=== PATIENT | male | born 1975 | race Caucasian/White ===

== ENCOUNTER 2024-07-05 10:23 | Day surgery (SDC) | payer OTHER ==
[2024-07-02 16:26] LABS: Anion Gap 5.6 mEq/L (5.0-15.0); Potassium 3.6 mEq/L (3.5-5.1)
--- NOTE | 2024-07-03 12:41 | EKG ---
Test Date: 2024-07-02 Test Time: 15:59:46 [employer]: JAKUB MEASUREMENT RESULTS: Intervals: Rate: 63 ID: [id number] QRSD: 102 QT: 376 QTc: 384 [place]: P: 72 ID: [id number] QRS: 82 T: 47 INTERPRETIVE STATEMENTS: Normal sinus rhythm with sinus arrhythmia Normal ECG No previous ECG available for comparison Electronically Signed On 07-03-24 12:38:31 CDT by Lazaro Vigil
[2024-07-05] MEDS: Ringers Lactate 1,000 ML IV ONE (10:45)
[2024-07-05] MEDS: CEFAZOLIN SODIUM 2 GM/VIAL ONE (11:50)
[2024-07-05] MEDS: LIDOCAINE HCL/EPINEPHRINE 20 ML MDV ONE (11:50)
[2024-07-05] MEDS ORDERED: MIDAZOLAM HCL 2 MG/2 ML INJ ONE (11:51)
[2024-07-05] MEDS ORDERED: dexAMETHasone 10 MG/ML VIAL ONE (11:51)
[2024-07-05] MEDS ORDERED: FENTANYL CITR 100 MCG/2 ML ONE (11:51)
[2024-07-05] MEDS ORDERED: ONDANSETRON 4 MG/2 ML VIAL ONE (11:51)
[2024-07-05] MEDS ORDERED: propofoL 200 MG/20 ML VIAL IV ONE (11:51)
[2024-07-05] MEDS ORDERED: LIDOCAINE 2% MPF 5 ML VIAL ONE (11:51)
[2024-07-05] MEDS ORDERED: KETOROLAC 30 MG/ML INJ ONE (11:51)
[2024-07-05] MEDS ORDERED: NS 0.9% VIAL 20 ML ONE (12:50)
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
[2024-07-05 13:58] VITALS: O2SAT 100
[2024-07-05 15:09] VITALS: BP 117/78; TEMP 97.8
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
== END 2024-07-05 15:05 | disposition home or self-care (01) ==
LOC: OR 10:23
PROVIDERS: ATTEND Surgery
PROC: 0JBG0ZZ Excision of Right Lower Arm Subcutaneous Tissue and Fascia, Open Approach (ICD-10-PCS; 2024-07-05)
PROC: 0JBG0ZZ Excision of Right Lower Arm Subcutaneous Tissue and Fascia, Open Approach (ICD-10-PCS; 2024-07-05)
PROC: 0JB10ZZ Excision of Face Subcutaneous Tissue and Fascia, Open Approach (ICD-10-PCS; principal; 2024-07-05 12:00)
PROC: 0JC10ZZ Extirpation of Matter from Face Subcutaneous Tissue and Fascia, Open Approach (ICD-10-PCS; 2024-07-05 12:00)
DX: L72.9 Follicular cyst of the skin and subcutaneous tissue, unspecified (principal); D17.21 Benign lipomatous neoplasm of skin and subcutaneous tissue of right arm; S01.84XA Puncture wound with foreign body of other part of head, initial encounter
CPT/HCPCS: 93005; 80048; 36415; 88300; 88304; 11442; 10120; 11403; 11402; A4216; J2704; J2001; J2250; J3010; J1100; J2405; J7120